=== PATIENT | male | born 1985 | race Caucasian/White ===

== ENCOUNTER 2018-07-27 09:51 | Emergency (ER) | payer OTHER ==
[~2018-07-27] VITALS: Ht 182.9 cm; Wt 100.0 kg
[2018-07-27 09:58] VITALS: BP 143/100
[2018-07-27] MEDS ORDERED: IBUP-2071 PO (10:07)
== END 2018-07-27 12:11 | disposition home or self-care (01) ==
LOC: EDUNIT# 09:51 → EMS 09:53
DX: K08.89 Other specified disorders of teeth and supporting structures (principal); Z79.899 Other long term (current) drug therapy
CPT/HCPCS: 99282

== ENCOUNTER 2019-09-22 12:02 | Inpatient (IN) | payer MEDICAID, OTHER ==
[~2019-09-22] VITALS: Ht 182.9 cm; Wt 109.8 kg
[~2019-09-22 12:02] MED LIST: IBUP-2071 PO
[2019-09-22] MEDS ORDERED: ZOLPIDEM TARTRATE 10 MG TABLET PO PRN (12:15)
[2019-09-22] MEDS ORDERED: LORazepam 2 MG TABLET PO PRN (12:15)
[2019-09-22] MEDS ORDERED: HALOPERIDOL 5 MG TABLET PO PRN (12:15)
[2019-09-22 12:26] VITALS: BP 130/89
[2019-09-22] MEDS ORDERED: INFLUENZA VIRUS VACCINE QVS 2019-20 (3YR+)/PF 60 MCG/0.5 ML SYRINGE IM ONE (13:15)
[2019-09-22 16:06] VITALS: BP 140/93
[2019-09-22] MEDS ORDERED: GuaiFENesin/D-METHORPHAN [SUGAR-FREE] 200-20MG/10 ML SYRUP UDCUP PO PRN (16:45)
[2019-09-22] MEDS ORDERED: MAG HYDROX/AL HYDROX/SIMETH ES 30 ML SUSPENSION UDCUP PO PRN (16:45)
[2019-09-22] MEDS ORDERED: MAGNESIUM HYDROXIDE SUSPENSION 30 ML UDCUP PO PRN (16:45)
[2019-09-22] MEDS ORDERED: DOCUSATE SODIUM 100 MG CAPSULE PO PRN (16:45)
[2019-09-22] MEDS ORDERED: PETROLATUM,WHITE 28 GM JELLY TP PRN (16:45)
[2019-09-22] MEDS ORDERED: ONDANSETRON HCL 4 MG TABLET PO PRN (16:45)
[2019-09-22] MEDS ORDERED: CloNIDine HCL 0.1 MG TABLET PO PRN (16:45)
[2019-09-22] MEDS ORDERED: ACETAMINOPHEN 325 MG TABLET PO PRN (16:45)
[2019-09-22] MEDS ORDERED: LOPERAMIDE HCL 2 MG CAPSULE PO PRN (16:45)
[2019-09-22] MEDS ORDERED: IBUPROFEN 400 MG TABLET PO PRN (16:45)
[2019-09-22] MEDS ORDERED: NICOTINE 14 MG/24 HOUR PATCH TD PRN (16:45)
[2019-09-22] MEDS ORDERED: ALBUTEROL SULFATE HFA 90 MCG/PUFF 8 GM INHALER IH PRN (16:45)
[2019-09-23 00:21] VITALS: BP 118/76
[2019-09-23 08:10] VITALS: BP 116/79
[2019-09-23 16:11] VITALS: BP 112/77
[2019-09-24 02:11] VITALS: BP 109/79
[2019-09-24 08:08] VITALS: BP 103/66
[2019-09-25 09:29] LABS: APPEARANCE,URINE TURBID (CLEAR); BILIRUBIN,URINE NEGATIVE (NEGATIVE); GLUCOSE, URINE (UA) NEGATIVE (NEGATIVE); KETONES,URINE NEGATIVE (NEGATIVE); LEUKOCYTE ESTERASE ,URINE NEGATIVE (NEGATIVE); NITRATE,URINE NEGATIVE (NEGATIVE); OCCULT BLOOD,URINE NEGATIVE (NEGATIVE); PROTEIN,URINE NEGATIVE (NEGATIVE); UROBILINOGEN,URINE 0.2 mg/dL (<=1.0)
[2019-09-25 09:32] LABS: AMPHET/METH SCREEN,URINE POSITIVE (NEGATIVE); BARBITURATE SCREEN, URINE NEGATIVE (NEGATIVE); BENZODIAZEPINES SCREEN,URINE NEGATIVE (NEGATIVE); CANNABINOID SCREEN,URINE POSITIVE (NEGATIVE); COCAINE SCREEN,URINE NEGATIVE (NEGATIVE); METHADONE SCREEN, URINE NEGATIVE (NEGATIVE); OPIATE SCREEN,URINE NEGATIVE (NEGATIVE)
[2019-09-25 09:33] LABS: PHENCYCLIDINE SCREEN,URINE NEGATIVE (NEGATIVE)
== END 2019-09-24 12:23 | disposition home or self-care (01) | DRG 751 ==
LOC: B2S 13:07
PROC: 3E0234Z Introduction of Serum, Toxoid and Vaccine into Muscle, Percutaneous Approach (ICD-10-PCS; principal; 2019-09-23)
DX: F33.2 Major depressive disorder, recurrent severe without psychotic features (principal); R45.851 Suicidal ideations; Z23 Encounter for immunization; F15.10 Other stimulant abuse, uncomplicated; F10.10 Alcohol abuse, uncomplicated; F41.9 Anxiety disorder, unspecified; Z59.0 Homelessness; R00.0 Tachycardia, unspecified
CPT/HCPCS: 80307; 90686

== ENCOUNTER 2021-05-16 11:17 | Emergency (ER) | payer OTHER ==
[~2021-05-16] VITALS: Ht 182.9 cm; Wt 113.6 kg
[~2021-05-16 11:17] MED LIST changes: -IBUP-2071 PO; +METF-960 PO
[2021-05-16 12:46] LABS: BASOPHILS % (AUTO) 0.5 % (0.0-2.0); EOSINOPHILS % (AUTO) 1.3 % (1.0-6.0); HEMOGLOBIN 13.4 g/dL (13.5-17.5); LYMPHOCYTES # (AUTO) 1.6 K/uL (1.0-4.8); LYMPHOCYTES % (AUTO) 10.5 % (22.0-44.0); MEAN CORPUSCULAR HEMOGLOBIN 27.4 pg (26.0-34.0); MEAN CORPUSCULAR HGB CONC 33.6 G/dL (31.0-37.0); MEAN CORPUSCULAR VOLUME 82 fL (80-100); MONOCYTES % (AUTO) 6.5 % (2.0-9.0); NEUTROPHILS # (AUTO) 12.6 K/uL (1.8-7.7); NEUTROPHILS % (AUTO) 81.2 % (40.0-70.0); PLATELET COUNT (AUTO) 324 K/uL (150-450); RED CELL DISTRIBUTION WIDTH 13.3 % (11.5-14.5)
[2021-05-16 13:05] LABS: ALANINE AMINOTRANSFERASE 70 U/L (12-78); ALBUMIN 2.5 g/dL (3.4-5.0); ALKALINE PHOSPHATASE 148 U/L (46-116); ANION GAP 11 mmol/L (8-16); ASPARTATE AMINOTRANSFERASE 73 U/L (15-37); BILIRUBIN,TOTAL 0.5 mg/dL (0.1-1.0); CALCIUM, TOTAL 9.2 mg/dL (8.8-10.5); CARBON DIOXIDE 29 mmol/L (22-29); CHLORIDE 94 mmol/L (98-107); CREATININE 1.04 mg/dL (0.60-1.30); GLOMERULAR FILTR. RATE CALC > 60 mL/min (>60); GLUCOSE,RANDOM 196 mg/dL (70-110); LIPASE 910 U/L (73-393); SODIUM SERUM 134 mmol/L (136-145); TOTAL PROTEIN, SERUM 7.4 g/dL (6.4-8.2); UREA NITROGEN, BLOOD 10 mg/dL (7-18)
[2021-05-16 13:10] LABS: POTASSIUM 2.7 mmol/L (3.5-5.1)
[2021-05-16] MEDS ORDERED: SODIUM CHLORIDE 0.9% 1,000 ML IV ONE (13:30)
[2021-05-16] MEDS ORDERED: POTASSIUM CHLORIDE 20 MEQ ER TABLET PO ONE (13:30)
[2021-05-16] MEDS: POTASSIUM CHL 10 MEQ/WATER 50 ML IV SCH ×3 (13:33→16:23)
[2021-05-16] MEDS ORDERED: IOHEXOL 350 MG/ML 100 ML VIAL ONE (14:06)
[2021-05-16] MEDS ORDERED: SODIUM CHLORIDE 0.9% 100 ML ONE (14:06)
[2021-05-16 17:05] VITALS: BP 134/92
== END 2021-05-16 17:35 | disposition home or self-care (01) ==
LOC: EMS 11:19
DX: K86.3 Pseudocyst of pancreas (principal); E87.6 Hypokalemia; Z79.84 Long term (current) use of oral hypoglycemic drugs
CPT/HCPCS: 74177; 80053; 83690; 85025; 96365; 96366; 99285; A9575; J3480; J7030; J7050; 96361

== ENCOUNTER 2021-06-27 09:18 | Emergency (ER) | payer OTHER ==
[~2021-06-27] VITALS: Ht 188 cm; Wt 102.3 kg
[2021-06-27 09:20] VITALS: BP 143/76
== END 2021-06-27 09:41 | disposition home or self-care (01) ==
LOC: EMS 09:22
DX: K86.3 Pseudocyst of pancreas (principal); E11.9 Type 2 diabetes mellitus without complications; Z79.84 Long term (current) use of oral hypoglycemic drugs
CPT/HCPCS: 99281; Z7502

== ENCOUNTER 2021-08-08 08:50 | Emergency (ER) | payer OTHER ==
[~2021-08-08] VITALS: Ht 185.4 cm; Wt 111.4 kg
[~2021-08-08 08:50] MED LIST changes: +METF-1211 PO; -METF-960 PO
[2021-08-08 08:59] VITALS: BP 112/77
== END 2021-08-08 10:30 | disposition left against medical advice (07) ==
LOC: EMS 08:50
DX: M79.89 Other specified soft tissue disorders (principal)

== ENCOUNTER 2021-08-28 13:11 | Emergency (ER) | payer OTHER ==
[~2021-08-28] VITALS: Ht 185.4 cm; Wt 111.4 kg
[2021-08-28 13:15] VITALS: BP 142/96
== END 2021-08-28 16:14 | disposition left against medical advice (07) ==
LOC: EMS 13:34
DX: M79.672 Pain in left foot (principal); Z53.21 Procedure and treatment not carried out due to patient leaving prior to being seen by health care provider

== ENCOUNTER 2021-08-29 09:12 | Emergency (ER) | payer OTHER ==
[~2021-08-29] VITALS: Ht 175.3 cm; Wt 100.0 kg
[2021-08-29] MEDS: IBUPROFEN 600 MG TABLET PO ONE (10:19)
[2021-08-29] MEDS: COLCHICINE 0.6 MG TABLET PO ONE (10:19)
[2021-08-29] MEDS: HYDROCODONE/ACETAMINOPHEN 5-325 MG TABLET PO ONE (10:20)
[2021-08-29 11:53] VITALS: BP 124/74
== END 2021-08-29 12:18 | disposition home or self-care (01) ==
LOC: EMS 09:16
DX: M10.9 Gout, unspecified (principal); K85.90 Acute pancreatitis without necrosis or infection, unspecified; E11.9 Type 2 diabetes mellitus without complications; F12.90 Cannabis use, unspecified, uncomplicated
CPT/HCPCS: 82962; 99284

== ENCOUNTER 2022-07-19 08:16 | Emergency (ER) | payer OTHER ==
[~2022-07-19] VITALS: Ht 182.9 cm; Wt 100.0 kg
[2022-07-19 08:36] LABS: GLUCOMETER DEV NAME(LOC) ERT.5; GLUCOSE,POINT OF CARE 84 MG/DL (70-110)
[2022-07-19] MEDS ORDERED: IBUPROFEN 600 MG TABLET PO ONE (08:45)
[2022-07-19] MEDS ORDERED: IBUP-2070 PO (09:08)
[2022-07-19 09:19] VITALS: BP 115/70
== END 2022-07-19 09:32 | disposition home or self-care (01) ==
LOC: EMS 08:20
DX: M79.672 Pain in left foot (principal); M79.671 Pain in right foot; F12.90 Cannabis use, unspecified, uncomplicated; E11.9 Type 2 diabetes mellitus without complications; M10.9 Gout, unspecified
CPT/HCPCS: 82962; 99282

== ENCOUNTER 2024-04-16 08:00 | Emergency (ER) | payer OTHER ==
[~2024-04-16] VITALS: Ht 182.9 cm; Wt 115.9 kg
[~2024-04-16 08:00] MED LIST changes: +IBUP-1492 PO; -METF-1211 PO
[2024-04-16 08:20] VITALS: TEMP 98
[2024-04-16] MEDS: OxyCODONE HCL/ACETAMINOPHEN 5-325 MG TABLET PO ONE ×2 (09:47→10:43)
[2024-04-16] MEDS: KETOROLAC TROMETHAMINE 60 MG/2 ML VIAL IM ONE (09:47)
[2024-04-16] MEDS ORDERED: INDO50CA97 PO (10:37)
[2024-04-16] MEDS ORDERED: COLC-3 PO ×2 (10:38)
[2024-04-16] MEDS: COLCHICINE 0.6 MG TABLET PO ONE (10:41)
[2024-04-16 13:00] VITALS: BP 119/67; PULSE 72; RESP 18
== END 2024-04-16 13:15 | disposition home or self-care (01) ==
LOC: EMS 08:03
DX: M10.9 Gout, unspecified (principal); E11.9 Type 2 diabetes mellitus without complications; F12.90 Cannabis use, unspecified, uncomplicated
CPT/HCPCS: 99284; 82962; 96372; J1885

== ENCOUNTER 2025-04-09 21:54 | Emergency (ER) | payer SELFPAY ==
[~2025-04-09] VITALS: Ht 182.9 cm; Wt 109.1 kg
[~2025-04-09 21:54] MED LIST changes: +COLC-3 PO; -IBUP-1492 PO; +INDO50CA97 PO
[2025-04-09 22:17] VITALS: BP 136/77; PULSE 105; RESP 18; TEMP 97.9; O2SAT 98
== END 2025-04-09 23:20 | disposition left against medical advice (07) ==
LOC: EMS 21:59
DX: M79.671 Pain in right foot (principal); M79.672 Pain in left foot; Z53.21 Procedure and treatment not carried out due to patient leaving prior to being seen by health care provider